=== PATIENT | male | born 1975 | race Caucasian/White ===

== ENCOUNTER 2016-12-22 12:40 | Emergency (ER) | payer BC ==
[2016-12-22] MEDS ORDERED: Ondansetron ODT TAB* 4 MG PO ONE (14:26)
--- NOTE | 2016-12-22 14:30 | UC ---
Dizzy HPI HPI Summary: The patient comes in today for: 1. Dizzy (any sudden movement will make him feel like he will be sick), body aches, nausea, cough, rhinitis: Onset: This morning. Palliative/provocative: Sitting still helps. Quality: Ache Region: Shoulder, pelvis, legs, knee. Severity: 5/10 Time: Constant. Associated symptoms: Flu vaccine: None. Flu exposure: "Everyone at work is sick." Fever: No temperature taken at home. Rhinitis: Clear Cough: dry Chest pain: None Dyspnea: None. He states that he would like a "Lyme blood test" as he has been bitten in the past by ticks--one treated, one not. Last urination this morning and it was "dark." * - History Of Current Complaint Chief Complaint: UCGeneralIllness Stated Complaint: ACHY,VOMITING,DIZZY Time Seen by Provider: 12/22/16 14:24 Hx Obtained From: Patient - Allergies/Home Medications Allergies/Adverse Reactions: Allergies Allergy/AdvReac Type Severity Reaction Status Date / Time opiates Allergy Mild See Comment Uncoded 08/15/15 17:25 Home Medications: Home Medications Alprazolam [Xanax] 3 mg PO BID 12/22/16 [History Confirmed 12/22/16] Eszopiclone (NF) [Lunesta (NF)] 3 mg PO 12/22/16 [History] PMH/Surg Hx/FS Hx/Imm Hx Previously Healthy: No - ADHD Endocrine History Of: Denies: Diabetes, Thyroid Disease, Hyperthyroidism, Hypothyroidism, Dyslipidemia Cardiovascular History Of: Denies: Cardiac Disorders, Hypertension, Pacemaker/ICD, Myocardial Infarction , Congestive Heart Failure, Atrial Fibrillation, Deep Vein Thrombosis, Bleeding Disorders Respiratory History Of: Denies: COPD, Asthma, Bronchitis, Pneumonia, Pulmonary Embolism GI/ History Of: Denies: Gastroesophageal Reflux, Ulcer, Gastrointestinal Bleed, Gall Bladder Disease, Kidney Stones, Diverticulitis, Renal Disease, Urosepsis Neurological History Of: Denies: TIA, CVA, Dementia, Seizures, Migraine Psychological History Of: Reports: Anxiety Denies: Depression, Bipolar Disorder, Schizophrenia, Post Traumatic Stress Disorder Cancer History Of: Denies: Lung Cancer, Colorectal Cancer, Breast Cancer, Prostate Cancer, Cervical Cancer Other History Of: Negative For: HIV, Hepatitis B, Hepatitis C, Anticoagulant Therapy - Surgical History Surgical History: None - Family History Known Family History: Positive: Diabetes Negative: Cardiac Disease, Hypertension - Social History Occupation: Employed Full-time Alcohol Use: None Substance Use Type: None Smoking Status (MU): Current Some Day Smoker Type: Cigarettes Amount Used/How Often: 2 daily Length of Time of Smoking/Using Tobacco: QUIT 2 WEEKS Have You Smoked in the Last Year: Yes Review of Systems Constitutional: Negative Skin: Negative Eyes: Negative ENT: Nasal Discharge Respiratory: Cough Cardiovascular: Negative Gastrointestinal: Negative, Diarrhea - Liquid stools x 3 today. Genitourinary: Negative All Other Systems Reviewed And Are Negative: Yes Physical Exam Triage Information Reviewed: Yes Appearance: No Pain Distress, Ill-Appearing - He moves slowly onto the exam table and Vital Signs: Initial Vital Signs Temp 98.0 F 12/22/16 12:43 Pulse 81 12/22/16 12:43 Resp 18 12/22/16 12:43 BP 142/90 12/22/16 12:43 Pulse Ox 99 12/22/16 12:43 Vital Signs Reviewed: Yes Eyes: Positive: Conjunctiva Clear. Negative: Discharge ENT: Positive: Hearing grossly normal. Negative: Pharyngeal erythema, Nasal congestion, Nasal drainage, TM bulging, TM dull, TM red, Tonsillar swelling, Tonsillar exudate Dental: Negative: Gross Decay/Caries @, Dental Fracture @ Neck: Positive: Supple, Nontender, No Lymphadenopathy. Negative: Nuchal Rigidity Respiratory: Positive: Lungs clear, No respiratory distress, No accessory muscle use. Negative: Crackles, Wheezing Cardiovascular: Positive: RRR, No Murmur Abdomen Description: Positive: Nontender, No Organomegaly, Soft, Other: - He has a healed surgical scar.. Negative: Distended, Guarding Musculoskeletal: Positive: Strength Intact, ROM Intact Neurological: Positive: Alert, Muscle Tone Normal Psychological: Positive: Age Appropriate Behavior, Consolable Skin: Positive: rashes - He has an erythematous, rash of the lower abdomen with lichenification.. Negative: breakdown Diagnostics - Laboratory Diagnostic Studies Completed/Ordered: Rapid flu test: (-) Re-Evaluation - Re-Evaluation First Eval Change: Improved - Nausea is better. He does not want a second dose. IV running. Second Eval Change: Improved - He is much more animated. He states that he is feeling well. He has had 300 ml in. Treatment options discussed when he leaves. Dizzy Course/Dx - Course Course Of Treatment: Patient had 1 liter of D5NS given IV and Zofran 4 mg oral given. - Differential Dx/Diagnosis Provider Diagnoses: Viral syndrome with athralgia, and myalgia and nausea. Dehydration. Viral gastroenteritis. Patient request for Lyme titer (arthalgia) . Hx of tick bites. Discharge - Discharge Plan Condition: Stable Disposition: HOME Patient Education Materials: Gastroenteritis (ED), Acute Nausea and Vomiting ( ED), Viral Syndrome (ED) Forms: *Work Release Referrals: Codie MENDOZA,Rene Yuen [Primary Care Provider] - 1 Week (Please see your primary care provider early next week to see how well you are doing. If you get worse, please be seen sooner by us or the ER.) Additional Instructions: Take [id number] Aleve (220 mg/pill) which can be taken as 1-2 pills twice a day as needed for pain. May start 8 hours after your treatment here in the office. Take the Zofran (ondansetron) as needed for nausea.
[2016-12-22] MEDS ORDERED: D5NS 0.9% 1000 ML BAG* 1,000 ML IV SCH (15:00)
[2016-12-22] MEDS ORDERED: Ketorolac INJ* 60 MG/2 ML VIAL IM ONE (15:14)
[2016-12-22] MEDS ORDERED: Ketorolac INJ* 60 MG/2 ML VIAL IV PUSH ONE (15:23)
[2016-12-22 15:48] VITALS: BP 131/90
== END 2016-12-22 16:27 | disposition home or self-care (01) ==
LOC: UCEAST 12:40
DX: B34.9 Viral infection, unspecified (principal); E86.0 Dehydration; A08.4 Viral intestinal infection, unspecified; M25.50 Pain in unspecified joint; R21 Rash and other nonspecific skin eruption
CPT/HCPCS: 86618; 87502; 96360; 96361; 96374; 99212; A9270-GY; G0463; J1885